=== PATIENT | male | born 1945 | race Caucasian/White ===

== ENCOUNTER 2016-11-13 10:39 | Inpatient (IN) | payer MEDICARE, MEDICAID ==
[~2016-11-13] VITALS: Ht 175.3 cm; Wt 59.4 kg
[~2016-11-13 10:39] MED LIST: CARV25TA47 PO; DIGOXIN PO; FURO-151 PO; HYDRALAZINE PO; LISINOPRIL PO; SIMV20TA2 PO
[2016-11-13] MEDS ORDERED: TRAMADOL 50MG TABLET PO ONE (11:00)
[2016-11-13 11:38] LABS: BASOPHILS % 0.8 % (0.0-2.0); EOSINOPHILS % 0.8 % (0.0-5.0); HEMATOCRIT. 32.6 % (42.0-52.0); LYMPHOCYTES % 14.4 % (20.0-50.0); MEAN CORPUSCULAR HEMOGLOBIN 28.8 pg (28.0-32.0); MEAN CORPUSCULAR VOLUME 85.8 fL (80.0-94.0); MEAN PLATELET VOLUME 8.2 fl (7.4-10.4); MONOCYTES % 9.8 % (2.0-8.0); NEUTROPHILS % 74.2 % (40.0-76.0); PLATELET 149 x1000/uL (130-400); RED CELL DISTRIBUTION WIDTH 14.4 % (11.6-14.6)
[2016-11-13 11:47] LABS: PARTIAL THROMBOPLASTIN TIME 27.2 sec (23.4-31.0); PROTHROMBIN TIME 10.6 sec (9.4-11.6)
[2016-11-13 11:54] LABS: CARBON DIOXIDE 21 mEq/L (21-32); CHLORIDE 106 mEq/L (98-107)
[2016-11-13 11:55] LABS: TROPONIN I < 0.02 ng/mL (0.00-0.04)
[2016-11-13] MEDS ORDERED: CALCIUM CHLORIDE 1GM/10ML SYR IV ONE (12:30)
[2016-11-13] MEDS ORDERED: SODIUM POLYSTYRENE SULFONATE 15 G/60 ML BOT PO ONE (12:30)
[2016-11-13] MEDS ORDERED: DEXTROSE 50% WATER 50ML SYRINGE IV ONE (12:30)
[2016-11-13] MEDS ORDERED: INSULIN REGULAR (HUMULIN R) 300UNITS/3ML IV ONE (12:30)
[2016-11-13] MEDS ORDERED: SODIUM BICARBONATE 8.4% 1 MEQ/ML 50ML SYR IV ONE (12:30)
[2016-11-13 12:41] LABS: PHOSPHORUS 4.5 mg/dL (2.5-4.9)
[2016-11-13 16:43] VITALS: BP 101/69
[2016-11-13 16:45] VITALS: BP 106/61
[2016-11-13] MEDS ORDERED: NAPR-679 PO (17:22)
[2016-11-13] MEDS ORDERED: LIP40 PO (17:22)
[2016-11-13] MEDS ORDERED: FURO-151 PO (17:22)
[2016-11-13] MEDS ORDERED: COLC0.6T66 PO (17:22)
[2016-11-13] MEDS ORDERED: CARV25TA47 PO (17:22)
[2016-11-13] MEDS ORDERED: ASPI-1159 PO (17:22)
[2016-11-13] MEDS ORDERED: SODIUM CHLORIDE 0.9% 500 ML IV ONE (19:00)
[2016-11-13] MEDS ORDERED: IPRATROPIUM/ALBUTEROL 0.5-3(2.5)MG/3ML NEB INH PRN (19:00)
[2016-11-13] MEDS ORDERED: ACETAMINOPHEN 325MG TABLET PO PRN (19:00)
[2016-11-13] MEDS ORDERED: DOCUSATE SODIUM 100MG CAPSULE PO PRN (19:00)
[2016-11-13] MEDS ORDERED: TRAMADOL 50MG TABLET PO PRN (19:00)
[2016-11-13] MEDS ORDERED: ONDANSETRON HCL 4MG/2ML VIAL IV PRN (19:00)
[2016-11-13 20:00] VITALS: BP_SYST 104; BP_SYST 94; BP_SYST 95; BP_DIAS 59; BP_DIAS 60
[2016-11-13 20:50] LABS: ETHANOL BLOOD < 10 mg/dL
[2016-11-13] MEDS ORDERED: ZOLPIDEM TARTRATE 5MG TABLET PO PRN (21:00)
[2016-11-13] MEDS: CARVEDILOL 25MG TABLET PO SCH (21:00)
[2016-11-13] MEDS: ATORVASTATIN CALCIUM 40MG TABLET PO SCH (21:01)
[2016-11-13 23:02] LABS: *AMPHETAMINES SCREEN URINE NEGATIVE (NEGATIVE); *BARBITURATES SCREEN URINE NEGATIVE (NEGATIVE); *BENZODIAZEPINES SCREEN URINE NEGATIVE (NEGATIVE); *COCAINE SCREEN URINE NEGATIVE (NEGATIVE); CANNABINOID URINE SCREEN NEGATIVE (NEGATIVE); METHADONE URINE SCREEN NEGATIVE (NEGATIVE); OPIATES URINE SCREEN NEGATIVE (NEGATIVE); PHENCYCLIDINE URINE SCREEN NEGATIVE (NEGATIVE)
[2016-11-14 00:14] VITALS: BP 99/53
[2016-11-14 04:00] VITALS: BP 93/63
[2016-11-14 07:12] LABS: BASOPHILS % 0.7 % (0.0-2.0); HEMATOCRIT. 30.9 % (42.0-52.0); HEMOGLOBIN. 10.5 g/dL (14.0-18.0); LYMPHOCYTES % 19.4 % (20.0-50.0); MEAN CORPUSCULAR HEMOGLOBIN 29.1 pg (28.0-32.0); MEAN CORPUSCULAR VOLUME 85.9 fL (80.0-94.0); MEAN PLATELET VOLUME 9.1 fl (7.4-10.4); MONOCYTES % 11.4 % (2.0-8.0); NEUTROPHILS % 67.5 % (40.0-76.0); PLATELET 139 x1000/uL (130-400)
[2016-11-14 08:00] VITALS: BP_SYST 90; BP_SYST 93; BP_SYST 97; BP_DIAS 56
[2016-11-14] MEDS: OMEPRAZOLE 20MG CAPSULE EXTENDED RELEASE PO SCH (08:52)
[2016-11-14] MEDS: ASPIRIN 81MG EC TABLET PO SCH (08:52)
[2016-11-14] MEDS: CARVEDILOL 25MG TABLET PO SCH ×2 (09:00→21:00)
[2016-11-14 10:43] LABS: CLARITY URINE CLOUDY (CLEAR); COLOR URINE YELLOW (YELLOW); GLUCOSE URINE NEGATIVE (NEGATIVE); KETONES URINE NEGATIVE (NEGATIVE); LEUKOCYTE ESTERASE URINE NEGATIVE (NEGATIVE); NITRITE URINE NEGATIVE (NEGATIVE); OCCULT BLOOD URINE NEGATIVE (NEGATIVE); PROTEIN URINE 1+ (NEGATIVE); SPECIFIC GRAVITY URINE 1.016 (1.005-1.030); UROBILINOGEN URINE 0.2 E.U./dL (0.2-1.0)
[2016-11-14 10:48] LABS: TROPONIN I < 0.02 ng/mL (0.00-0.04)
[2016-11-14 11:28] LABS: DIGOXIN 0.1 ng/mL (0.9-2.0)
[2016-11-14 12:00] VITALS: BP 113/63
[2016-11-14 16:00] VITALS: BP 95/54
[2016-11-14] MEDS ORDERED: SODIUM POLYSTYRENE SULFONATE 15 G/60 ML BOT PO NR (16:30)
[2016-11-14] MEDS: SODIUM CHLORIDE 0.9% 1,000 ML IV SCH ×2 (16:47→21:22)
[2016-11-14 20:00] VITALS: BP_SYST 103; BP_SYST 92; BP_SYST 95; BP_DIAS 53; BP_DIAS 55; BP_DIAS 56
[2016-11-14] MEDS: ATORVASTATIN CALCIUM 40MG TABLET PO SCH (21:22)
[2016-11-15 00:05] VITALS: BP 105/62
[2016-11-15 04:00] VITALS: BP 103/61
[2016-11-15] MEDS: OMEPRAZOLE 20MG CAPSULE EXTENDED RELEASE PO SCH (07:54)
[2016-11-15 08:00] VITALS: BP_SYST 105; BP_SYST 106; BP_SYST 93; BP_DIAS 51; BP_DIAS 64; BP_DIAS 65
[2016-11-15 08:16] LABS: BASOPHILS % 0.7 % (0.0-2.0); EOSINOPHILS % 1.6 % (0.0-5.0); HEMATOCRIT. 29.8 % (42.0-52.0); HEMOGLOBIN. 10.2 g/dL (14.0-18.0); MEAN CORPUSCULAR HEMOGLOBIN 29.2 pg (28.0-32.0); MEAN CORPUSCULAR VOLUME 85.6 fL (80.0-94.0); MEAN PLATELET VOLUME 8.5 fl (7.4-10.4); MONOCYTES % 12.2 % (2.0-8.0); NEUTROPHILS % 61.5 % (40.0-76.0); PLATELET 134 x1000/uL (130-400); RED BLOOD CELL COUNT 3.48 mill/uL (4.7-6.1)
[2016-11-15] MEDS: ASPIRIN 81MG EC TABLET PO SCH (08:33)
[2016-11-15] MEDS: CARVEDILOL 25MG TABLET PO SCH (08:39)
[2016-11-15 09:09] LABS: PHOSPHORUS 3.5 mg/dL (2.5-4.9)
[2016-11-15 12:00] VITALS: BP 130/52
[2016-11-15 16:00] VITALS: BP 113/69
[2016-11-15 16:27] VITALS: BP 105/64
[2016-11-15 17:12] LABS: ANTI-NUCLEAR ANTIBODIES DIRECT Negative (Negative)
[2016-11-16 08:21] LABS: COMPLEMENT C3 113 mg/dL (82-167)
[2016-11-16] MEDS ORDERED: FAMOTIDINE 20MG TABLET PO SCH (09:00)
== END 2016-11-15 16:50 | disposition home or self-care (01) | DRG 469 ==
LOC: ER 12:48 → ENRESERV 15:19 → CANBEDREQ 16:42 → 7WST 17:59
PROVIDERS: ADMIT Family Medicine Adult Medicine; ATTEND Family Medicine Adult Medicine
DX: N17.0 Acute kidney failure with tubular necrosis (principal); I13.0 Hypertensive heart and chronic kidney disease with heart failure and stage 1 through stage 4 chronic kidney disease, or unspecified chronic kidney disease; I42.0 Dilated cardiomyopathy; I50.9 Heart failure, unspecified; E87.5 Hyperkalemia; E86.9 Volume depletion, unspecified; D64.9 Anemia, unspecified; I25.10 Atherosclerotic heart disease of native coronary artery without angina pectoris; N18.9 Chronic kidney disease, unspecified; I25.2 Old myocardial infarction; Z95.810 Presence of automatic (implantable) cardiac defibrillator; Z79.82 Long term (current) use of aspirin; Z79.899 Other long term (current) drug therapy; T46.4X5A Adverse effect of angiotensin-converting-enzyme inhibitors, initial encounter
CPT/HCPCS: 36415; 70450; 71010; 72125; 76770; 80048; 80061; 80162; 80305; 81001; 82550; 83735; 83880; 84100; 84132; 84443; 84484; 85025; 85610; 85730; 86038; 86160; 93005; 93306; 93880; 93970; 96374; 96375; 97162; 97165; 99291; G0482; J1815; J3490; J7030

== ENCOUNTER 2018-02-11 11:52 | Emergency (ER) | payer MEDICARE, MEDICAID ==
[~2018-02-11] VITALS: Ht 175.3 cm; Wt 82.0 kg
[~2018-02-11 11:52] MED LIST changes: +ASPI-1159 PO; +COLC0.6T66 PO; +LIP40 PO; +NAPR-679 PO
[2018-02-11] MEDS ORDERED: TRAMADOL 50MG TABLET PO ONE (16:15)
[2018-02-11 18:22] VITALS: BP 110/68
== END 2018-02-11 18:24 | disposition home or self-care (01) ==
LOC: ER 13:44
DX: M10.9 Gout, unspecified (principal); Z87.891 Personal history of nicotine dependence; Z95.0 Presence of cardiac pacemaker; Z79.82 Long term (current) use of aspirin; Z79.899 Other long term (current) drug therapy
CPT/HCPCS: 99283

== ENCOUNTER 2019-06-05 03:23 | Inpatient (IN) | payer MEDICARE, MEDICAID ==
[2019-06-05] VITALS (73 sets, daily range): BP systolic 0–160; BP diastolic 0–120
[~2019-06-05] VITALS: Ht 172.7 cm; Wt 89.8 kg
[~2019-06-05 03:23] MED LIST changes: -ASPI-1159 PO; +ASPI-1497 PO
[2019-06-05] MEDS ORDERED: DEXTROSE 50% WATER 50ML SYRINGE IV ONE ×3 (04:00→07:25)
[2019-06-05] MEDS ORDERED: DEXT 5%/0.45% NACL 500ML 500 ML IV ONE (04:00)
[2019-06-05] MEDS ORDERED: GLUCAGON,HUMAN RECOMBINANT 1MG/VIAL ONE (04:08)
[2019-06-05 04:19] LABS: BG BASE EXCESS -25.8 mmol/L (-2.0-2.0); BG CARBOXYHEMOGLOBIN 0.3 % (0.5-1.5); BG DEOXYHEMOGLOBIN 0.5 % (0.0-5.0); BG FRACTION INSPIRED OXYGEN 100; BG HCO3 ACT 3.3 mmol/L (22.0-26.0); BG METHEMOGLOBIN 0.4 % (0.0-1.5); BG OXYGEN SATURATION 99.5 % (92.0-98.5); BG OXYHEMOGLOBIN 98.8 % (94.0-97.0); BG PCO2 13.3 mmHg (35.0-45.0); BG PH 7.017 (7.350-7.450); BG PO2 269.4 mmHg (75.0-100.0); BG SAMPLE SITE LEFT RADIAL; BG TOTAL HEMOGLOBIN 12.9 g/dL (12.0-18.0); BG VENT MODE MASK - NRB
[2019-06-05 04:44] LABS: HEMATOCRIT. 41.5 % (42.0-52.0); HEMOGLOBIN. 12.2 g/dL (14.0-18.0); MEAN CORPUSCULAR HEMOGLOBIN 24.4 pg (28.0-32.0); MEAN CORPUSCULAR VOLUME 82.9 fL (80.0-94.0); MEAN PLATELET VOLUME 9.4 fl (7.4-10.4); PLATELET 60 x1000/uL (130-400)
[2019-06-05] MEDS ORDERED: EPINEPHRINE 0.1MG/ML (1:10,000) 10ML SYR ONE (05:40)
[2019-06-05] MEDS ORDERED: SODIUM CHLORIDE 0.9% 1,000 ML IV ONE (05:45)
[2019-06-05 05:49] LABS: NUCLEATED RED BLOOD CELLS 4 /100 WBC
[2019-06-05 05:50] LABS: PLATELET ESTIMATE DECREASED
[2019-06-05] MEDS ORDERED: NOREPINEPHRINE 4MG/250ML PMX 250 ML IV ONE ×2 (05:52→06:00)
[2019-06-05] MEDS ORDERED: FUROSEMIDE 100MG/10ML VIAL IV STA (05:55)
[2019-06-05 05:56] LABS: CHLORIDE 93 mEq/L (98-107)
[2019-06-05] MEDS ORDERED: CALCIUM CHLORIDE 1GM/10ML SYR IV ONE (06:00)
[2019-06-05] MEDS ORDERED: SODIUM BICARBONATE 8.4% 1 MEQ/ML 50ML SYR IV ONE (06:00)
[2019-06-05] MEDS ORDERED: INSULIN REGULAR (HUMULIN R) 300UNITS/3ML IV ONE (06:00)
[2019-06-05] MEDS ORDERED: NOREPINEPHRINE 4 MG in DEXT 5% WATER 246 ML IV ONE (06:00)
[2019-06-05] MEDS ORDERED: SODIUM POLYSTYRENE SULFONATE 15 G/60 ML BOT PO ONE (06:00)
[2019-06-05 06:09] LABS: CHLORIDE 94 mEq/L (98-107)
[2019-06-05 06:13] LABS: BG BASE EXCESS -27.8 mmol/L (-2.0-2.0); BG CARBOXYHEMOGLOBIN 0.3 % (0.5-1.5); BG DEOXYHEMOGLOBIN 0.4 % (0.0-5.0); BG FRACTION INSPIRED OXYGEN 100; BG HCO3 ACT 4.5 mmol/L (22.0-26.0); BG METHEMOGLOBIN 0.4 % (0.0-1.5); BG OXYGEN SATURATION 99.6 % (92.0-98.5); BG OXYHEMOGLOBIN 98.9 % (94.0-97.0); BG PCO2 26.1 mmHg (35.0-45.0); BG PH 6.853 (7.350-7.450); BG PO2 547.7 mmHg (75.0-100.0); BG SAMPLE SITE RIGHT RADIAL; BG TIDAL VOLUME(mL) 550 mL; BG TOTAL HEMOGLOBIN 9.8 g/dL (12.0-18.0); BG VENT MODE VENT - A/C; BG VENT RATE 20 set
[2019-06-05] MEDS ORDERED: LORAZEPAM 2MG/ML CPJ IV ONE (06:15)
[2019-06-05] MEDS ORDERED: ASPIRIN 325MG TABLET PO NR (06:15)
[2019-06-05] MEDS ORDERED: MIDAZOLAM HCL 50 MG in DEXTROSE 5% WATER 40 ML IV ONE (06:15)
[2019-06-05] MEDS ORDERED: FENTANYL CITRATE/PF 500 MCG in SODIUM CHLORIDE 0.9% 40 ML IV PRN ×2 (06:15→06:30)
[2019-06-05] MEDS ORDERED: LORAZEPAM 2MG/ML CPJ ONE (06:20)
[2019-06-05] MEDS ORDERED: ENOXAPARIN 80MG/0.8ML SYR SUBCUT ONE (06:30)
[2019-06-05] MEDS ORDERED: SODIUM BICARBONATE 150 MEQ in DEXTROSE 5% WATER 1,000 ML IV SCH ×2 (06:30→09:30)
[2019-06-05] MEDS ORDERED: MIDAZOLAM HCL 50 MG in DEXTROSE 5% WATER 40 ML IV PRN (06:30)
[2019-06-05] MEDS ORDERED: CALCIUM GLUCONATE 100MG/ML 10ML VIAL IV ONE (06:30)
[2019-06-05 07:13] LABS: PARTIAL THROMBOPLASTIN TIME 48.8 sec (23.4-31.0); PROTHROMBIN TIME 52.2 sec (9.6-11.0)
[2019-06-05] MEDS ORDERED: SODIUM BICARBONATE 8.4% 1 MEQ/ML 50ML SYR IV SCH (08:19)
[2019-06-05 08:38] LABS: PARTIAL THROMBOPLASTIN TIME 46.7 sec (23.4-31.0); PROTHROMBIN TIME 44.2 sec (9.6-11.0)
[2019-06-05] MEDS ORDERED: DEXTROSE 50% WATER 50ML SYRINGE IV PRN (08:45)
[2019-06-05] MEDS ORDERED: ACETAMINOPHEN 650MG SUPP PR PRN (08:45)
[2019-06-05 09:03] LABS: INR 4.2
[2019-06-05] MEDS ORDERED: EPINEPHRINE 4 MG in SODIUM CHLORIDE 0.9% 249 ML IV PRN ×2 (09:30→09:45)
[2019-06-05] MEDS ORDERED: DEXT 5% IV PRN ×2 (09:30→09:45)
[2019-06-05] MEDS ORDERED: EPINEPHRINE 1 MG in SODIUM CHLORIDE 0.9% 249 ML IV PRN (09:30)
[2019-06-05] MEDS ORDERED: NOREPINEPHRINE IV PRN ×2 (09:30→09:45)
[2019-06-05] MEDS ORDERED: NOREPINEPHRINE 8 MG in DEXT 5% WATER 492 ML IV PRN (09:30)
[2019-06-05] MEDS ORDERED: WATER IV PRN ×2 (09:30→09:45)
[2019-06-05] MEDS ORDERED: VASOPRESSIN 10 UNIT in SODIUM CHLORIDE 0.9% 99.5 ML IV SCH (09:30)
[2019-06-05] MEDS: VASOPRESSIN 10 UNIT in SODIUM CHLORIDE 0.9% 99.5 ML IV SCH ×2 (10:30→16:43)
[2019-06-05] MEDS ORDERED: ALBUMIN HUMAN 12.5GM/50ML (25%) IV SCH (12:00)
[2019-06-05] MEDS ORDERED: PHYTONADIONE 10MG/ML AMP SUBCUT SCH (14:30)
[2019-06-05 15:31] LABS: HEMATOCRIT 32.4 % (42.0-52.0); HEMOGLOBIN 10.5 g/dL (14.0-18.0); MEAN CORPUSCULAR HEMOGLOBIN 24.3 pg (28.0-32.0); MEAN CORPUSCULAR VOLUME 75.3 fL (80.0-94.0); RED CELL DISTRIBUTION WIDTH 21.4 % (11.6-14.6)
[2019-06-05 15:48] LABS: PLATELET 50 x1000/uL (130-400)
[2019-06-05 15:58] LABS: BG DEOXYHEMOGLOBIN 8.1 % (0.0-5.0); BG FRACTION INSPIRED OXYGEN 40; BG METHEMOGLOBIN 0.3 % (0.0-1.5); BG OXYGEN SATURATION 91.8 % (92.0-98.5); BG OXYHEMOGLOBIN 90.6 % (94.0-97.0); BG PCO2 22.6 mmHg (35.0-45.0); BG PO2 63.5 mmHg (75.0-100.0); BG SAMPLE SITE RIGHT RADIAL; BG TIDAL VOLUME(mL) 550 mL; BG TOTAL HEMOGLOBIN 10.4 g/dL (12.0-18.0); BG VENT MODE VENT - A/C; BG VENT RATE 20 set
[2019-06-05 16:09] LABS: HEPATITIS B SURFACE ANTIGEN NEGATIVE
[2019-06-05] MEDS ORDERED: OCTREOTIDE 1,000 MCG in SODIUM CHLORIDE 0.9% 98 ML IV SCH (16:30)
[2019-06-05 16:38] LABS: HEPATITIS A AB IGM NEGATIVE (NEGATIVE)
[2019-06-05] MEDS ORDERED: NOREPINEPHRINE 32 MG in DEXT 5% WATER 468 ML IV PRN (17:00)
[2019-06-05] MEDS ORDERED: EPINEPHRINE 4 MG in SODIUM CHLORIDE 0.9% 246 ML IV PRN (17:30)
[2019-06-06] MEDS ORDERED: PHYTONADIONE 10MG/ML AMP SUBCUT SCH (06:00)
== END 2019-06-05 20:00 | disposition expired | DRG 720 ==
LOC: ER 03:27 → EDBEDREQTM 06:19 → EDBEDREQSVC 06:19 → CVICU 06:46 → EDBEDREQ 06:48 → EDBEDREQTM 06:48 → ENRESERV 07:58
PROVIDERS: ADMIT Family Medicine Adult Medicine; ATTEND Family Medicine Adult Medicine
PROC: 5A1935Z Respiratory Ventilation, Less than 24 Consecutive Hours (ICD-10-PCS; principal; 2019-06-05)
PROC: 0BH17EZ Insertion of Endotracheal Airway into Trachea, Via Natural or Artificial Opening (ICD-10-PCS; 2019-06-05)
PROC: 02HV33Z Insertion of Infusion Device into Superior Vena Cava, Percutaneous Approach (ICD-10-PCS; 2019-06-05)
PROC: B548ZZA Ultrasonography of Superior Vena Cava, Guidance (ICD-10-PCS; 2019-06-05)
DX: A41.9 Sepsis, unspecified organism (principal); I21.A1 Myocardial infarction type 2; J96.01 Acute respiratory failure with hypoxia; K72.00 Acute and subacute hepatic failure without coma; E43 Unspecified severe protein-calorie malnutrition; N17.0 Acute kidney failure with tubular necrosis; R57.0 Cardiogenic shock; G93.41 Metabolic encephalopathy; D68.9 Coagulation defect, unspecified; K92.2 Gastrointestinal hemorrhage, unspecified; E11.22 Type 2 diabetes mellitus with diabetic chronic kidney disease; D69.6 Thrombocytopenia, unspecified; N18.6 End stage renal disease; I42.0 Dilated cardiomyopathy; R65.20 Severe sepsis without septic shock; I13.2 Hypertensive heart and chronic kidney disease with heart failure and with stage 5 chronic kidney disease, or end stage renal disease; I50.23 Acute on chronic systolic (congestive) heart failure; E78.00 Pure hypercholesterolemia, unspecified; E83.51 Hypocalcemia; D63.8 Anemia in other chronic diseases classified elsewhere; E87.1 Hypo-osmolality and hyponatremia; E87.2 Acidosis; E87.5 Hyperkalemia; E87.8 Other disorders of electrolyte and fluid balance, not elsewhere classified; Z99.2 Dependence on renal dialysis; E11.649 Type 2 diabetes mellitus with hypoglycemia without coma; Z95.810 Presence of automatic (implantable) cardiac defibrillator; Z79.01 Long term (current) use of anticoagulants; Z79.82 Long term (current) use of aspirin; N28.1 Cyst of kidney, acquired
CPT/HCPCS: 36415; 36600; 71045; 76700; 76937; 78278; 80048; 80053; 82375; 82805; 82962; 83880; 84484; 85025; 85027; 85732; 86705; 86709; 86803; 86850; 86900; 86927; 87070; 87340; 93005; 93306; 93970; 94002; A9560; C1752; J0610; J1610; J1815; J1940; J2060; J2250; J2354; J3010; J3430; J3490; J7030; J7050; J7060; J7070; P9017; P9047